=== PATIENT | female | born 1955 | race Caucasian/White ===

== ENCOUNTER 2020-06-09 23:18 | Observation (INO) ==
[2020-06-09] MEDS ORDERED: ZOFRAN INJ 4 MG VIAL IVP ONE (23:41)
[2020-06-09] MEDS ORDERED: ZOFRAN INJ 4 MG VIAL ONE (23:42)
[2020-06-09 23:50] VITALS: BMI 34.7
[2020-06-10] LABS: BASOPHILS # (AUTO) 0.1 X10^3/uL (0.0-0.1); BASOPHILS % (AUTO) 1.1 % (0.2-1.0); EOSINOPHILS # (AUTO) 0.3 x10^3/uL (0.0-0.2); EOSINOPHILS % (AUTO) 2.1 % (0.9-2.9); HEMATOCRIT 42.5 % (36.0-47.0); LYMPHOCYTES # (AUTO) 3.6 X10^3/uL (1.3-2.9); LYMPHOCYTES % (AUTO) 27.7 % (21.0-51.0); MEAN CORPUSCULAR HGB CONC 32.9 g/dL (33.0-35.0); MEAN CORPUSCULAR VOLUME 88.4 fL (80.0-100.0); MEAN PLATELET VOLUME 10.3 fL (7.4-11.0); MONOCYTES # (AUTO) 0.9 x10^3/uL (0.3-0.8); MONOCYTES % (AUTO) 7.2 % (0.0-13.0); NEUTROPHILS # (AUTO) 8.1 x10^3/uL (2.2-4.8); NEUTROPHILS % (AUTO) 61.9 % (42.0-75.0); PLATELET COUNT 253 X10^3/uL (150.0-450.0); RED BLOOD COUNT 4.81 X10^6/uL (3.5-5.4); RED CELL DISTRIBUTION WIDTH 13.3 % (11.6-16.5); WHITE BLOOD COUNT 13.1 X10^3/uL (3.6-10.0)
[2020-06-10] MEDS ORDERED: NITROSTAT SL PRN
[2020-06-10] MEDS ORDERED: MORPHINE SULFATE INJ 2 MG INJ IVP ONE
[2020-06-10] MEDS ORDERED: MORPHINE SULFATE INJ 2 MG INJ ONE (00:03)
[2020-06-10] MEDS ORDERED: NITROSTAT ONE (00:03)
[2020-06-10 00:18] LABS: BLOOD UREA NITROGEN 15 mg/dL (7-18); CALCIUM 8.9 mg/dL (8.5-10.1); CARBON DIOXIDE 27.8 mmol/L (21-32); CHLORIDE 105 mmol/L (98-107); CREATININE 0.91 mg/dL (0.55-1.02); SODIUM 142 mmol/L (136-145); TROPONIN I < 0.02 ng/mL (0-1.5); eGFR NON BLACK RACES > 60 (>60)
[2020-06-10 00:23] LABS: ALANINE AMINOTRANSFERASE 25 Units/L (12-78); ALBUMIN 3.7 g/dL (3.4-5.0); ALKALINE PHOSPHATASE 108 Units/L (46-116); ASPARTATE AMINO TRANSFERASE 25 Units/L (15-37); CKMB % 1.2 % (<4); CREATINE KINASE 107 Units/L (26-192); CREATINE KINASE MB 1.3 ng/mL (0-4.0); TOTAL PROTEIN 7.5 g/dL (6.4-8.2)
--- NOTE | 2020-06-10 00:29 | DR.CP ---
HPI Time Seen Time Seen by Provider: 06/09/20 23:53 PCP Primary Care Physician: shanika HPI Comment HPI Comment: A 64 y/o female presenting with c/o C/P about 30 mins. 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 pressure like and radiates circumferentially around her Lt. ribs to the back. There is no associated SOB, palpitation or diaphoresis. She has a hx. of CAD, M.I. and CABG in November 2019. She had taken 2 S/L NTG at home prior to coming. She had seen her screen maker (MD Sam) today for routine cardiology f/u. Complaint Chief Complaint:: PT C/O CHEST PAIN THAT STARTED TONIGHT WHILE WASHING DISHES. PT HAD TRIPLE BYPASS IN Nov PT HAS SWELLING NOTED TO LE BILATERALLY COVID-19 Coronavirus risk:travel/contact w/high risk person: No Has patient experienced Coronavirus symptoms: No Reviewed Nurses Notes Review: Yes Source History Provided: Patient Mode of Arrival Mode of Arrival: Ambulatory Timing Onset of Chief Complaint: 06/09/20 Came on: Gradually Pain: Present Now (but better) Duration Duration: Constant Location Chest Pain Radiation Location: None Context Onset: At rest Cardiac Risk Factors: HTN and Other (CAD) PE Risk Factors: None History of: Angina, Aspirin in last 24 hours and Other (CABG) Prehospital Care: [facility] Nitro Quality Quality: Sharp Severity Severity: Moderate Modifying Factors Worsens: Nothing Impoves: NTG Associated Signs and Symptoms Associated Signs and Symptoms: Nausea/Vomiting PMH PMH Past Medical History: Yes Past Medical History: Coronary Artery Disease, Dyslipidemia and Hypertension Past Surgical History: Yes Surgical History: CABG/Valve Surgery Family History History of Family Medical Conditions: Yes Family Medical History: MS, Coronary Artery Disease, Sudden Cardiac and Hypertension Social History Does patient currently use any type of tobacco product: Yes Have you used tobacco products in the last 12 months: Yes Type of Tobacco Use: Cigarettes Does any household member use tobacco: No Alcohol Use: None Do you use any recreational Drugs:: No Lives With: Family Lives Where: Home Infectious screening In the last 2 months have you had wt loss of >10#?: NO Have you had fever, night sweats or hemotysis?: No Have you traveled outside the country in the last 6 months?: No Isolation: Standard ROS Review of Systems Constitutional: No Symptoms Reported Eyes: No Symptoms Reported ENTM: No Symptoms Reported Respiratoy: No Symptoms Reported Cardiovascular: Chest Pain and Edema (legs) Gastrointestinal/Abdominal: Nausea Genitourinary: No Symptoms Reported Neurological: No Symptoms Reported Musculoskeletal: No Symptoms Reported Integumentary: No Symptoms Reported Hematologic/Lymphatic: No Symptoms Reported Endocrine: No Symptoms Reported Psychiatric: No Symptoms Reported PE Vitals Vitals: Temperature 97.8 F Pulse Rate 64 Respiratory Rate 21 Blood Pressure 137/65 O2 Sat by Pulse Oximetry 97 General Limitations: No Limitations General Appearance: Alert, In No Apparent Distress and Anxious Head Head Exam: Normal Inspection, Atraumatic and Normocephalic Eyes Eye exam: Normal Appearance and EOMI ENT ENT Exam: Normal Exam, Normal Oropharynx, Normal External Ear Exam and Mucous Membranes Moist Chest Chest Inspection: Normal Inspection, Symmetric Chest Wall Rise and Other (healed sternostomy scar. ) Respiratory Respiratory Exam: Normal Lung Sounds Bilat Cardiovascular Cardiovascular Exam: Regular Rate, Normal Rhythm, Normal Heart Sounds, +S1 and +S2 Edema: 1 (b/l legs) Abdominal Exam Abdominal Exam: Normal Inspection, Normal Bowel Sounds and Soft; negative Distention, Tenderness, Guarding, Rebound, Rigidity, Dimnished Bowel Sounds, Hyperactive Bowel Sounds, Hypoactive Bowel Sounds, Organomegaly, Trauma, Incision, Ascites, Mass, Bruit, Pulsatile Mass and Hernia Extremities Extremities Exam: Normal Inspection, Full ROM, Normal Capillary Refill and Edema (b/l lega); negative Tenderness, Joint Swelling and Calf Tenderness Back Back Exam: Normal Inspection and Full ROM Neurologic Neurological Exam: Alert and Oriented X3 Psychiatric Psychiatric Exam: Normal Affect and Normal Mood Skin Skin Exam: Dry and Normal Color COURSE Reevaluation 1st: Improved 2nd: Resolved Education/Counseling Education/Counseling: Patient, Education and Counseling Educated On: Treatment, Diagnosis and Prognosis ROR Labs Reviewed Laboratory Results Reviewed?: Yes Result Diagrams: 06/09/20 23:44 06/09/20 23:44 Laboratory: WBC 13.1 X10^3/uL (3.6-10.0) H 06/09/20 23:44 RBC 4.81 X10^6/uL (3.5-5.4) 06/09/20 23:44 Hgb 14.0 g/dL (12.0-16.0) 06/09/20 23:44 Hct 42.5 % (36.0-47.0) 06/09/20 23:44 MCV 88.4 fL (80.0-100.0) 06/09/20 23:44 MCH 29.0 pg (27.0-34.0) 06/09/20 23:44 MCHC 32.9 g/dL (33.0-35.0) L 06/09/20 23:44 RDW 13.3 % (11.6-16.5) 06/09/20 23:44 Plt Count 253 X10^3/uL (150.0-450.0) 06/09/20 23:44 MPV 10.3 fL (7.4-11.0) 06/09/20 23:44 Neut % (Auto) 61.9 % (42.0-75.0) 06/09/20 23:44 Lymph % (Auto) 27.7 % (21.0-51.0) 06/09/20 23:44 [place] % (Auto) 7.2 % (0.0-13.0) 06/09/20 23:44 Eos % (Auto) 2.1 % (0.9-2.9) 06/09/20 23:44 Baso % (Auto) 1.1 % (0.2-1.0) H 06/09/20 23:44 Neut # (Auto) 8.1 x10^3/uL (2.2-4.8) H 06/09/20 23:44 Lymph # (Auto) 3.6 X10^3/uL (1.3-2.9) H 06/09/20 23:44 [place] # (Auto) 0.9 x10^3/uL (0.3-0.8) H 06/09/20 23:44 Eos # (Auto) 0.3 x10^3/uL (0.0-0.2) H 06/09/20 23:44 Baso # (Auto) 0.1 X10^3/uL (0.0-0.1) 06/09/20 23:44 Absolute Nucleated RBC 0.0 /100WBC 06/09/20 23:44 PT 12.6 SECONDS (11.8-14.3) 06/09/20 23:44 INR Target Range - 06/09/20 23:44 INR 0.99 (0.8-1.3) 06/09/20 23:44 APTT 30.1 SECONDS (22.9-36.5) 06/09/20 23:44 PTT Comment - 06/09/20 23:44 D-Dimer 0.77 ug/ml (0.0-0.57) H* 06/09/20 23:44 Sodium 142 mmol/L (136-145) 06/09/20 23:44 Corrected Sodium TNP 06/09/20 23:44 Potassium 4.2 mmol/L (3.5-5.1) 06/09/20 23:44 Chloride 105 mmol/L (98-107) 06/09/20 23:44 Carbon Dioxide 27.8 mmol/L (21-32) 06/09/20 23:44 BUN 15 mg/dL (7-18) 06/09/20 23:44 Creatinine 0.91 mg/dL (0.55-1.02) 06/09/20 23:44 Est GFR (MDRD) Af Amer > 60 (>60) 06/09/20 23:44 Est GFR (MDRD) Non-Af > 60 (>60) 06/09/20 23:44 Glucose 92 mg/dL (65-99) 06/09/20 23:44 Calcium 8.9 mg/dL (8.5-10.1) 06/09/20 23:44 Corrected Calcium TNP 06/09/20 23:44 Magnesium 2.0 mg/dL (1.7-2.9) 06/09/20 23:44 Total Bilirubin 0.40 mg/dL (0.2-1.0) 06/09/20 23:44 AST 25 Units/L (15-37) 06/09/20 23:44 ALT 25 Units/L (12-78) 06/09/20 23:44 Alkaline Phosphatase 108 Units/L (46-116) 06/09/20 23:44 Creatine Kinase 107 Units/L (26-192) 06/09/20 23:44 CK-MB (CK-2) 1.3 ng/mL (0-4.0) 06/09/20 23:44 CK/CKMB % Calc 1.2 % (<4) 06/09/20 23:44 Troponin I < 0.02 ng/mL (0-1.5) 06/09/20 23:44 B-Natriuretic Peptide 111 pg/mL (0-79) H 06/09/20 23:44 Total Protein 7.5 g/dL (6.4-8.2) 06/09/20 23:44 Albumin 3.7 g/dL (3.4-5.0) 06/09/20 23:44 Globulin 3.8 g/dL (2.5-4.5) 06/09/20 23:44 Albumin/Globulin Ratio 1.0 Ratio (1.1-2.1) L 06/09/20 23:44 SARS-CoV-2 (PCR) Negative (NEGATIVE) 06/10/20 00:47 Influenza Type A (PCR) Negative (NEGATIVE) 06/10/20 00:47 Influenza Type B (PCR) Negative (NEGATIVE) 06/10/20 00:47 RSV (PCR) Negative (NEGATIVE) 06/10/20 00:47 EKG Rate: 77 Bivalve: RAD Rhythm: NSR Block: None Hypertrophy: None ST: Normal Opioid Opioid Risk Tool Total: 0 Total Score Risk Category: Low Risk Copyright: [facility] predicting aberrant behaviors Diagnosis Discharge Problem: Chest pain due to CAD, D-dimer, elevated, Dyslipidemia HTN (hypertension) Qualifiers: Hypertension type: essential hypertension Qualified Code(s): I10 - Essential (primary) hypertension Instructions Forms: Precautions for COVID19 Patient Portal Social Distancing ADDITIONAL NOTES Additional Notes Additional Notes: HISTORY CHEST PAIN, ELEVATED D-DIMER STUDY CTA CHEST COMPARISON 02/25/2020 TECHNIQUE Multiple axial images of the chest were obtained from the thoracic inlet to the upper abdomen after the administration of IV contrast. 3D reconstructions utilizing axial MIPS imaging was performed and reviewed. Dose reduction techniques including Automated Exposure Control (AEC) and adjustment of mA and kV were utilized. FINDINGS Borderline mediastinal lymph nodes unchanged. There is no paracardial effusion observed. The thoracic aorta is normal in its contour without evidence for aneurysmal dilatation. The central pulmonary arterial system does not demonstrate central filling defects to suggest pulmonary emboli. Evaluation of the lung parenchyma demonstrates emphysematous changes throughout the lungs.. Subtle peripheral ground-glass opacity with mild interlobular septal thickening again noted. No pneumothorax. No pulmonary nodule or mass can be identified. The bony thorax is unremarkable in its appearance . The visualized portions of the upper abdomen are grossly unremarkable . IMPRESSION Stable prominent mediastinal nodes. Emphysematous changes throughout the lungs with chronic interstitial findings. Unremarkable CTA of the thoracic aorta and pulmonary arteries. Electronically signed by: Sharad Maradiaga (June 10, 2020 02:00:47)
--- NOTE | 2020-06-10 02:03 | CT ---
HISTORYCHEST PAIN, ELEVATED D-DIMERSTUDYCTA [id number]/20/2021TECHNIQUEMultiple axial images of the chest were obtained from the thoracic inlet to the upper abdomen after the administration of IV contrast. 3D reconstructions utilizing axi al MIPS imaging was performed and reviewed. Dose reduction techniques including Automated Exposure C ontrol (AEC) and adjustment of mA and kV were utilized.FINDINGSBorderline mediastinal lymph nodes unc hanged. There is no paracardial effusion observed. The thoracic aorta is normal in its contour witho ut evidence for aneurysmal dilatation. The central pulmonary arterial system does not demonstrate ce ntral filling defects to suggest pulmonary emboli.Evaluation of the lung parenchyma demonstrates emph ysematous changes throughout the lungs.. Subtle peripheral ground-glass opacity with mild interlobula r septal thickening again noted. No pneumothorax. No pulmonary nodule or mass can be identified. The bony thorax is unremarkable in its appearance . The visualized portions of the upper abdomen are isadora ssly unremarkable .IMPRESSIONStable prominent mediastinal nodes.Emphysematous changes throughout the lungs with chronic interstitial findings.Unremarkable CTA of the thoracic aorta and pulmonary arterie s.Electronically signed by: Sharad Maradiaga (June 10, 2020 02:00:47)
[2020-06-10] MEDS: LIPITOR TAB 80 MG PO SCH ×2 (05:38→21:26)
[2020-06-10] MEDS: NORCO 5/325 MG TAB PO PRN ×2 (06:04→22:42)
--- NOTE | 2020-06-10 06:06 | RAD ---
HISTORYPT C/O LEFT SIDED CHEST PAIN RADIATING TO BACK WHICH STARTED TONIGHTSTUDYCHEST, 1 VIEWCOMPARISONCTA chest from 06/10/2020.TECHNIQUEAP view of the chestFINDINGSPost median sternotomy and CABG. Cardiac and mediastinal contours are within normal limits. Lungs are hyperexpanded with mild scattered interstitial opacities. No definite pleural effusion or pneumothorax. Soft tissue attenuation limits evaluation.IMPRESSIONMild emphysema with chronic appearing interstitial disease.Electronically signed by: Trae Tracey (June 10, 2020 06:04:15)
[2020-06-10 06:12] LABS: BASOPHILS # (AUTO) 0.1 X10^3/uL (0.0-0.1); BASOPHILS % (AUTO) 0.9 % (0.2-1.0); EOSINOPHILS # (AUTO) 0.3 x10^3/uL (0.0-0.2); EOSINOPHILS % (AUTO) 2.4 % (0.9-2.9); HEMATOCRIT 39.4 % (36.0-47.0); HEMOGLOBIN 13.1 g/dL (12.0-16.0); LYMPHOCYTES # (AUTO) 3.8 X10^3/uL (1.3-2.9); LYMPHOCYTES % (AUTO) 29.8 % (21.0-51.0); MEAN CORPUSCULAR HEMOGLOBIN 29.3 pg (27.0-34.0); MEAN CORPUSCULAR HGB CONC 33.3 g/dL (33.0-35.0); MEAN PLATELET VOLUME 9.5 fL (7.4-11.0); MONOCYTES # (AUTO) 0.9 x10^3/uL (0.3-0.8); MONOCYTES % (AUTO) 7.1 % (0.0-13.0); NEUTROPHILS # (AUTO) 7.6 x10^3/uL (2.2-4.8); NEUTROPHILS % (AUTO) 59.8 % (42.0-75.0); PLATELET COUNT 198 X10^3/uL (150.0-450.0); RED BLOOD COUNT 4.48 X10^6/uL (3.5-5.4); RED CELL DISTRIBUTION WIDTH 13.4 % (11.6-16.5); WHITE BLOOD COUNT 12.7 X10^3/uL (3.6-10.0)
[2020-06-10 06:40] LABS: ALANINE AMINOTRANSFERASE 19 Units/L (12-78); ALBUMIN 3.3 g/dL (3.4-5.0); ALKALINE PHOSPHATASE 98 Units/L (46-116); ASPARTATE AMINO TRANSFERASE 15 Units/L (15-37); BLOOD UREA NITROGEN 13 mg/dL (7-18); CALCIUM 8.6 mg/dL (8.5-10.1); CARBON DIOXIDE 27.4 mmol/L (21-32); CHLORIDE 106 mmol/L (98-107); CHOL/HDL RATIO 4.1 (0.0-5.0); CHOLESTEROL 152 mg/dL (0-200); COR CA(FOR HYPOALB) 9.2 mg/dL (8.5-10.1); CREATININE 0.89 mg/dL (0.55-1.02); HDL CHOLESTEROL 37 mg/dL (40-60); SODIUM 142 mmol/L (136-145); TOTAL PROTEIN 6.6 g/dL (6.4-8.2); TRIGLYCERIDES 111 mg/dL (0-150); eGFR NON BLACK RACES > 60 (>60)
[2020-06-10 06:51] LABS: CKMB % 2.1 % (<4); CREATINE KINASE 70 Units/L (26-192); CREATINE KINASE MB 1.5 ng/mL (0-4.0); TROPONIN I < 0.02 ng/mL (0-1.5)
[2020-06-10 06:52] LABS: GIANT PLATELET RARE
[2020-06-10 06:53] LABS: PLATELET MORPHOLOGY COMMENT ABNORMAL (NORMAL)
[2020-06-10] MEDS: ASPIRIN EC 81 MG PO SCH (08:43)
[2020-06-10] MEDS: LOPRESSOR TAB 25 MG PO SCH ×2 (08:43→21:26)
--- NOTE | 2020-06-10 11:06 | VAS ---
HISTORY:Bilateral leg swelling and tendernessStudy: Venous DopplerComparison:NoneTECHNIQUE: Multiple [place] scale and color flow Doppler images of the deep venous system were obtained of the bilateral lower extremitiesFINDINGS:There is normal respiratory phasicity, compression and augmentation of the extremity veins without evidence of acute DVT .IMPRESSION:1. Negative for DVT.Electronically signed by: ASAD HANSEN (June 10, 2020 11:06:21)
[2020-06-10] MEDS: LOVENOX INJ 40 MG SYR SC SCH (12:25)
--- NOTE | 2020-06-10 12:44 | DR.H&P ---
H&P - History & Physical for Day of: H&P Date: 06/10/20 - Chief Complaint Chief Complaint: CHEST PAIN, LOWER EXTREMITY SWELLING - History of Present Illness History of Present Illness: IS A 64 YEAR OLD PATIENT OF [facility]HT[facility]. SHE REPORTED TO THIS ER WITH COMPLAINTS OF CHEST PAIN X 30 MINUTES PRIOR TO ARRIVAL. PAIN IS LOCATED ON THE LEFT SIDE AND RADIATES TO THE LEFT RIBS AND BACK. SHE DESCRIBES PAIN PRESSURE AND RATED IT A 3/10 ON ARRIVAL TO THE ER. SHE REPORTS THAT PAIN WAS WORSE AT HOME, SO SHE TOOK TWO SUBLINGUAL NITROGLYCERINE. SHE DENIES SHORTNESS OF BREATH, PALPITATIONS, OR DIAPHORESIS. 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 PATIENT DOES HAVE A PMH OF CAD, MA, AND CABG IN NOVEMBER 2019. IN ADDITION, SHE ALSO COMPLAINTS OF PAIN AND LOWER EXTREMITY SWELLING THAT STARTED ONE DAY PRIOR. EXAMINATION REVEALED NORMAL HEART RATE AND RHYTHM. BILATERAL LUNGS NOTED WITH DIMINISHED LUNG SOUNDS THROUGHOUT. THERE WAS 1+ EDEMA TO LOWER EXTREMITIES. ON ARRIVAL, VITALS WERE 97.8-83-20-97%-183/84. LABS WERE OBTAINED. ABNORMAL LAB VALUES INCLUDED THE FOLLOWING: WBC 13.1, D-DIMER 0.77, BNP 111. CARDIAC ENZYMES WITHIN NORMAL LIMITS. COVID-19, INFLUENZA, AND RSV NEGATIVE. EKG WAS OBTAINED AND REVEALED: SINUS RHYTHM WITH HR 77. A CHEST XRAY WAS OBTAINED AND REVEALED: Mild emphysema with chronic appearing interstitial disease. A CHEST CTA WAS OBTAINED DUE TO ELEVATED D-DIMER AND CHEST PAIN. IT REVEALED: Stable prominent mediastinal nodes. Emphysematous changes throughout the lungs with chronic interstitial findings. Unremarkable CTA of the thoracic aorta and pulmonary arteries. IN THE ER, SHE WAS GIVEN MORPHINE SULFATE 2MG IV X 1 DOSE, ZOFRAN 4MG IV X 1 DOSE. DECISION WAS MADE TO ADMIT PATIENT TO THE HOSPITAL FOR FURTHER EVALUATION AND TREATMENT OF CHEST PAIN, RULE OUT ACUTE MA, ELEVATED D-DIMER, CAD, HTN, AND DYSLIPIDEMIA. SHE WAS STARTED ON LOVENOX 40MG SC DAILY, LOPRESSOR 12.5MG PO BID, ECOTRIN 81MG PO DAILY, LIPITOR 80MG PO HS, NORCO 5/325MG PO Q6H PRN, AND NITROSTAT 0.4MG SL Q5M PRN. TODAY, WE PLAN TO OBTAIN BILATERAL LOWER EXTREMITY VENOUS DOPPLER TO RULE OUT DVT, AN ECHOCARDIOGRAM, AND CAROTIC DOPPLERS. WE WILL REPEAT SERIAL CARDIAC ENZYMES AND EKGS. OTHERWISE, WE PLAN TO FOLLOW UP WITH AM LABS AND CONTINUE TO MONITOR. TIME SPENT ON CLINICAL ASSESSMENT, REVIEWING LABS AND IMAGING, DECISION MAKING, AND DOCUMENTATION GREATER THAN 75 MINUTES. - Past Medical History Past Medical History: Coronary Artery Disease, Hypertension, Dyslipidemia - Past Surgical History Surgical History: CABG/Valve Surgery - Family History Family Medical History: MA, Sudden Cardiac , Hypertension - Social History Does patient currently use any type of tobacco product: Yes Have you used tobacco products in the last 12 months: Yes Type of Tobacco Use: Cigarettes How many years tobacco product used: 20 Does any household member use tobacco: Yes Alcohol Use: None - Medications Home Medications: No Known Drug Allergies Allergy (Verified 06/09/20 23:39) CONTINUE taking the following medications aspirin [Aspir-81] 81 mg PO DAILY 06/10/20 [History] atorvastatin [Lipitor] 80 mg PO QHS 06/10/20 [History] metoprolol tartrate 12.5 mg PO BID 06/10/20 [History] - Review of Systems Constitutional: No Symptoms Reported Eyes: No Symptoms Reported ENT: No Symptoms Reported Respiratory: No Symptoms Reported Cardiovascular: Chest Pain, Edema (LOWER EXTREMITY SWELLING ) Gastrointestinal: No Symptoms Reported Genitourinary: No Symptoms Reported Musculoskeletal: No Symptoms Reported Skin: No Symptoms Reported Neurological: Weakness - Physical Exam Vital Signs: Temperature 97.9 F Pulse Rate [Brachial] 73 Pulse Rate [Apical] 81 Pulse Rate 79 Respiratory Rate 20 Blood Pressure [Left Arm] 90/56 Blood Pressure 98/44 O2 Sat by Pulse Oximetry 95 Oriented: Normal Eyes: Normal Ear: Normal Nose: Normal Throat: Normal Respiratory: Diminished Throughout Cardiovascular: Normal : Normal Auscultation: Bowel Sounds: Normal Palpation: Normal Tenderness: Normal Skin: Normal Musculoskeletal: Normal Psychiatric: Normal Mood Description: Calm Affect: Normal Speech Pattern: Clear - Assessment/Plan (1) Chest pain, rule out acute myocardial infarction Status: Acute Plan: ADMIT, LOVENOX 40MG SC DAILY, LOPRESSOR 12.5MG PO BID, ECOTRIN 81MG PO DAILY, LIPITOR 80MG PO HS, NORCO 5/325MG PO Q6H PRN, AND NITROSTAT 0.4MG SL Q5M PRN, BILATERAL LOWER EXTREMITY VENOUS DOPPLER TO RULE OUT DVT, AN ECHOCARDIOGRAM, AND CAROTIC DOPPLERS. (2) D-dimer, elevated Status: Acute (3) CAD (coronary artery disease) Qualifiers: Coronary Disease-Associated Artery/Lesion type: [place] artery [place] vs. transplanted heart: [place] heart Associated angina: unspecified whether angina present Qualified Code(s): I25.10 - Atherosclerotic heart disease of [place] coronary artery without angina pectoris Status: Chronic (4) Dyslipidemia Status: Chronic (5) HTN (hypertension) Qualifiers: Hypertension type: essential hypertension Qualified Code(s): I10 - Essential (primary) hypertension Status: Chronic - Allergies Allergies/Adverse Reactions: Allergies Allergy/AdvReac Type Severity Reaction Status Date / Time No Known Drug Allergies Allergy Verified 06/09/20 23:39
[2020-06-10 13:06] LABS: CKMB % 3.1 % (<4); CREATINE KINASE 59 Units/L (26-192); CREATINE KINASE MB 1.8 ng/mL (0-4.0); TROPONIN I < 0.02 ng/mL (0-1.5)
[2020-06-10 15:32] LABS: CREATINE KINASE 57 Units/L (26-192); CREATINE KINASE MB 1.7 ng/mL (0-4.0); TROPONIN I < 0.02 ng/mL (0-1.5)
--- NOTE | 2020-06-10 17:55 | VAS ---
CAROTID USCLINICAL INDICATION: KELLY, DIZZINESS, HTNPROCEDURE: Pulsed wave and color-flow duplex imaging was utilized to evaluate the extracranial carotid arteries.COMPARISON:NoneFINDINGS:Right carotid:The velocities are as follows:CCA peak systolic velocity 62 cm/sec, ICA peak systolic velocity 130 cm/sec. Flow within the right vertebral and right ECA is directed antegrade.ICA/CCA ratio: 2.0Left carotid:The velocities are as follows:CCA peak systolic velocity 160 cm/sec, ICA peak systolic velocity 132 cm/sec. Flow within the left vertebral and left ECA is directed antegrade.ICA/CCA ratio: 0.8IMPRESSION:1. Increased peak systolic velocity corresponds to a 50-69% diameter stenosis of the right ICA.2. Increased peak systolic velocity corresponds to a 50-69% diameter stenosis of the left ICA.Electronically signed by: IVETT WELSH (June 10, 2020 17:53:00)
[2020-06-10 18:54] LABS: CKMB % 3.1 % (<4); CREATINE KINASE 52 Units/L (26-192); CREATINE KINASE MB 1.6 ng/mL (0-4.0); TROPONIN I < 0.02 ng/mL (0-1.5)
[2020-06-11 06:12] LABS: BASOPHILS # (AUTO) 0.1 X10^3/uL (0.0-0.1); BASOPHILS % (AUTO) 1.1 % (0.2-1.0); EOSINOPHILS # (AUTO) 0.3 x10^3/uL (0.0-0.2); EOSINOPHILS % (AUTO) 3.1 % (0.9-2.9); HEMATOCRIT 39.7 % (36.0-47.0); HEMOGLOBIN 13.4 g/dL (12.0-16.0); LYMPHOCYTES # (AUTO) 3.7 X10^3/uL (1.3-2.9); LYMPHOCYTES % (AUTO) 41.2 % (21.0-51.0); MEAN CORPUSCULAR HEMOGLOBIN 29.6 pg (27.0-34.0); MEAN CORPUSCULAR HGB CONC 33.6 g/dL (33.0-35.0); MEAN CORPUSCULAR VOLUME 88.1 fL (80.0-100.0); MEAN PLATELET VOLUME 10.4 fL (7.4-11.0); MONOCYTES # (AUTO) 0.6 x10^3/uL (0.3-0.8); MONOCYTES % (AUTO) 6.5 % (0.0-13.0); NEUTROPHILS # (AUTO) 4.3 x10^3/uL (2.2-4.8); NEUTROPHILS % (AUTO) 48.1 % (42.0-75.0); PLATELET COUNT 195 X10^3/uL (150.0-450.0); RED BLOOD COUNT 4.51 X10^6/uL (3.5-5.4); RED CELL DISTRIBUTION WIDTH 13.3 % (11.6-16.5); WHITE BLOOD COUNT 8.9 X10^3/uL (3.6-10.0)
[2020-06-11 06:22] LABS: ALANINE AMINOTRANSFERASE 21 Units/L (12-78); ALBUMIN 3.1 g/dL (3.4-5.0); ALKALINE PHOSPHATASE 93 Units/L (46-116); ASPARTATE AMINO TRANSFERASE 14 Units/L (15-37); BLOOD UREA NITROGEN 12 mg/dL (7-18); CALCIUM 8.5 mg/dL (8.5-10.1); CARBON DIOXIDE 25.8 mmol/L (21-32); CHLORIDE 108 mmol/L (98-107); COR CA(FOR HYPOALB) 9.2 mg/dL (8.5-10.1); CREATININE 0.83 mg/dL (0.55-1.02); SODIUM 143 mmol/L (136-145); TOTAL PROTEIN 6.5 g/dL (6.4-8.2); eGFR NON BLACK RACES > 60 (>60)
[2020-06-11 06:35] LABS: GIANT PLATELET RARE; PLATELET MORPHOLOGY COMMENT ABNORMAL (NORMAL)
[2020-06-11] MEDS: LOPRESSOR TAB 25 MG PO SCH (08:55)
[2020-06-11] MEDS: LOVENOX INJ 40 MG SYR SC SCH (08:55)
[2020-06-11] MEDS: ASPIRIN EC 81 MG PO SCH (08:55)
[2020-06-11 09:10] VITALS: BP 140/64
== END 2020-06-11 10:39 | disposition home or self-care (01) ==
LOC: ER 23:29 → MED/SURG 23:29
PROVIDERS: ADMIT Internal Medicine; ATTEND Internal Medicine
DX: R94.31 Abnormal electrocardiogram [ECG] [EKG]; I25.10 Atherosclerotic heart disease of native coronary artery without angina pectoris; R79.1 Abnormal coagulation profile; D72.828 Other elevated white blood cell count; R60.0 Localized edema; Z20.822 Contact with and (suspected) exposure to COVID-19; Z95.1 Presence of aortocoronary bypass graft; E78.2 Mixed hyperlipidemia; R07.89 Other chest pain; I10 Essential (primary) hypertension